=== PATIENT | female | born 1960 | race Hispanic/Latino ===

== ENCOUNTER 2022-01-20 00:45 | Emergency (ER) | payer SELFPAY ==
[2022-01-20] MEDS ORDERED: HYDROcodone/Acetaminophen 10/325 mg Tablet ONE (01:36)
== END 2022-01-20 02:15 | disposition home or self-care (01) ==
LOC: CSHERS 00:45
DX: S22.31XA Fracture of one rib, right side, initial encounter for closed fracture (principal); E11.9 Type 2 diabetes mellitus without complications; K21.9 Gastro-esophageal reflux disease without esophagitis; E78.5 Hyperlipidemia, unspecified; F17.210 Nicotine dependence, cigarettes, uncomplicated; W22.8XXA Striking against or struck by other objects, initial encounter
CPT/HCPCS: 71045